=== PATIENT | female | born 1990 | race African-American/Black ===

== ENCOUNTER 2022-05-24 01:08 | Emergency (ER) | payer MEDICAID ==
[~2022-05-24] VITALS: Ht 170.2 cm; Wt 76.7 kg
--- NOTE | 2022-05-24 01:15 | NUR ---
PT BIBSELF C/O INJURY TO LEFT GREAT TOE ON 05/20/22. PT IS A/O X 4, RR EVEN And UNALBORED, NO SOB NOTED, VSS, NO ACUTE DISTRESS NOTED. PT TAKEN TO ER BED 01
--- NOTE | 2022-05-24 01:18 | NUR ---
XRAY AT BEDSIDE
--- NOTE | 2022-05-24 01:53 | NUR ---
EMT AT BEDSIDE FOR ORTHOPEDIC TX
[2022-05-24 02:01] VITALS: BP 135/70
--- NOTE | 2022-05-24 02:01 | NUR ---
Patient discharged to home in stable condition. Written and verbal after care instructions given. Patient verbalizes understanding of instruction.
--- NOTE | 2022-05-24 02:01 | NUR ---
Patient discharged to home in stable condition. Written and verbal after care instructions given. Patient verbalizes understanding of instruction. PT was provided with orthopedic shoes and ctuches.
== END 2022-05-24 02:02 | disposition home or self-care (01) ==
LOC: ER 01:20
DX: S92.412A Displaced fracture of proximal phalanx of left great toe, initial encounter for closed fracture (principal); W20.8XXA Other cause of strike by thrown, projected or falling object, initial encounter; Y93.89 Activity, other specified; Y92.89 Other specified places as the place of occurrence of the external cause; Y99.8 Other external cause status
CPT/HCPCS: 73630-TC